=== PATIENT | female | born 1985 | race Two or more races ===

== ENCOUNTER 2025-10-17 19:58 | Emergency (ER) | payer MEDICAID ==
[~2025-10-17] VITALS: Ht 167.6 cm; Wt 72.6 kg
[2025-10-17 21:13] VITALS: BP 147/80; TEMP 98.9; O2SAT 98
[2025-10-17] MEDS ORDERED: AZIT250T13 PO (21:17)
[2025-10-17] MEDS ORDERED: GUAI1TBM19 PO (21:17)
[2025-10-17] MEDS ORDERED: IBUP-1953 PO (21:17)
[2025-10-17] MEDS ORDERED: ALBU18HF2 INH (21:17)
[2025-10-17] MEDS ORDERED: LORA10CA PO (21:17)
[2025-10-17] MEDS ORDERED: IBUPROFEN 600 MG TABLET ONE (21:29)
[2025-10-17] MEDS: IBUPROFEN 600 MG TABLET PO ONE (21:30)
[2025-10-18] MEDS ORDERED: AMOX-430 PO (13:58)
[2025-10-18] MEDS ORDERED: DOXY100T2 PO (15:06)
[2025-10-18] MEDS ORDERED: ONDA4TAB11 PO (15:07)
== END 2025-10-17 21:32 | disposition home or self-care (01) ==
LOC: ER 20:25
DX: J06.9 Acute upper respiratory infection, unspecified (principal); B97.89 Other viral agents as the cause of diseases classified elsewhere; J40 Bronchitis, not specified as acute or chronic; Z87.09 Personal history of other diseases of the respiratory system

== ENCOUNTER 2025-10-18 12:20 | Emergency (ER) | payer MEDICAID ==
[~2025-10-18] VITALS: Ht 162.6 cm; Wt 68.5 kg
[~2025-10-18 12:20] MED LIST: ALBU18HF2 INH; AZIT250T13 PO; GUAI1TBM19 PO; IBUP-1953 PO; LORA10CA PO
[2025-10-18 13:28] LABS: PLATELET COUNT (AUTO) 263 K/uL (150-450); RED BLOOD CELL COUNT(AUTO) 4.05 MIL/uL (4.0-5.2); RED CELL DISTRIBUTION WIDTH 13.7 % (11.5-15.0); WHITE BLOOD COUNT (AUTO) 4.9 K/uL (4.3-11.0)
[2025-10-18 13:46] LABS: CALCIUM, SERUM 8.8 mg/dL (8.5-10.1); CREATININE 0.6 mg/dL (0.6-1.3); SODIUM SERUM 134.0 mmol/L (136-145); UREA NITROGEN, BLOOD 10.0 mg/dL (7-18)
[2025-10-18] MEDS ORDERED: ONDANSETRON HCL/PF 4 MG/2 ML VIAL ONE (13:54)
[2025-10-18 13:55] LABS: ASPARTATE AMINOTRANSFERASE 32.0 U/L (15-37); PHOSPHORUS 2.5 mg/dL (2.5-4.9); TOTAL PROTEIN, SERUM 7.9 g/dL (6.4-8.2)
[2025-10-18] MEDS: IV NS 0.9% 1,000 ML BAG IV ONE ×2 (13:58→14:10)
[2025-10-18] MEDS: ONDANSETRON HCL/PF - ER 4 MG/2 ML VIAL IV ONE (13:58)
[2025-10-18] MEDS ORDERED: AMOX-430 PO (13:58)
[2025-10-18] MEDS: CEFTRIAXONE 1GM BAG (ER ONLY) 1 GM/50 ML PIGGYBACK IV ONE (14:10)
[2025-10-18 14:22] VITALS: TEMP 98.6
[2025-10-18] MEDS: ACETAMINOPHEN ES 500 MG TABLET PO ONE (14:22)
[2025-10-18] MEDS ORDERED: DOXY100T2 PO (15:06)
[2025-10-18] MEDS ORDERED: ONDA4TAB11 PO (15:07)
[2025-10-18 18:05] VITALS: BP 117/70; O2SAT 98
== END 2025-10-18 16:10 | disposition home or self-care (01) ==
LOC: ER 12:29
DX: J18.9 Pneumonia, unspecified organism (principal); A41.9 Sepsis, unspecified organism; R55 Syncope and collapse; Z20.822 Contact with and (suspected) exposure to COVID-19
CPT/HCPCS: 99285; 96365; 71045; 96375; 87426; 93005; 87804 ×2; 85025; 87040; 83605; 83735; 84100; 36415; 80053; J2405 ×2; J7030; J0696